=== PATIENT | male | born 1965 | race Caucasian/White ===

== ENCOUNTER 2018-08-30 08:47 | Emergency (ER) | payer OTHER ==
--- NOTE | 2018-08-30 09:07 | EDPHY ---
H & P Stated Complaint: n/v/d C FEVER X 4d, TAKES IBUPROFEN Time Seen by Provider: 08/30/18 09:06 HPI/ROS: CHIEF COMPLAINT: Myalgias, fever, vomiting HISTORY OF PRESENT ILLNESS: The patient presents the ED with a 4-5 day history of myalgias, fever and vomiting. The patient denies a significant cough. He does complain of a mild frontal headache. The patient denies any neck stiffness , focal numbness or weakness. He denies significant abdominal pain. The patient does have a past medical history significant for hepatitis-C. The patient denies any dysuria, flank pain or rash. He has no additional acute complaints. REVIEW OF SYSTEMS: A comprehensive 10 point review of systems is otherwise negative aside from elements mentioned in the history of present illness. Source: Patient Exam Limitations: No limitations - Personal History Current Tetanus/Diphtheria Vaccine: Unsure - Medical/Surgical History Hx Asthma: No Hx Chronic Respiratory Disease: No Hx Diabetes: No Hx Cardiac Disease: No Hx Renal Disease: No Hx Cirrhosis: No Hx Alcoholism: No Hx HIV/AIDS: No Hx Splenectomy or Spleen Trauma: No Other PMH: Hep C treated - Social History Smoking Status: Never smoked - Physical Exam Exam: General Appearance: Alert, mild discomfort Eyes: Pupils equal and round no pallor or injection ENT, Mouth: Mucous membranes moist Respiratory: There are no retractions, lungs are clear to auscultation Cardiovascular: Tachycardic Gastrointestinal: Abdomen is soft and nontender, no masses, bowel sounds normal Neurological: 5/5 strength noted all 4 extremities, normal cranial nerves Skin: Warm and dry, no rashes Musculoskeletal: Neck is supple nontender, specifically no meningeal symptoms Extremities: symmetrical, full range of motion Psychiatric: Patient is oriented X 3, there is no agitation Constitutional: Initial Vital Signs Temperature (C) 37.8 C 08/30/18 09:00 Heart Rate 122 H 08/30/18 09:00 Respiratory Rate 18 08/30/18 09:00 Blood Pressure 103/71 08/30/18 09:00 O2 Sat (%) 92 08/30/18 09:00 Allergies/Adverse Reactions: No Known Allergies Allergy (Unverified 08/30/18 09:00) Home Medications: Medication Instructions Recorded Hydrocodone/APAP 5/325 [[place] 1 - 2 each PO Q6 PRN #20 tab 08/30/18 5/325] Ondansetron Odt [Zofran Odt] 4 mg PO Q4PRN PRN #20 tab 08/30/18 Medical Decision Making ED Course/Re-evaluation: The patient presents to the ED with a constellation of signs and symptoms consistent with acute influenza. The patient has no clinical evidence of meningitis or pneumonia. He is mildly tachycardic from dehydration. The patient had an IV established. He received 2 L of normal saline, 4 mg of IV Zofran and and 15 mg of Toradol. Patient is not a candidate for antiviral therapy given the duration of his symptoms. Re-evaluated the patient at 10:15 a.m., he is feeling better after rehydration. The patient will be discharged home at this point time. He is provided a prescription for Zofran and [place]. He is discharged home with customary aftercare instructions and return precautions. Differential Diagnosis: Differential diagnosis considered includes influenza, dehydration, metabolic abnormality - Data Points Laboratory Results: Laboratory Results 08/30/18 09:20 08/30/18 09:20 08/30/18 08/30/18 09:20 09:20 WBC 9.40 10^3/uL 10^3/uL (3.80-9.50) RBC 5.14 10^6/uL 10^6/uL (4.40-6.38) Hgb 16.6 g/dL g/dL (13.7-17.5) Hct 45.8 % % (40.0-51.0) MCV 89.1 fL fL (81.5-99.8) MCH 32.3 pg pg (27.9-34.1) MCHC 36.2 g/dL g/dL (32.4-36.7) RDW 11.6 % % (11.5-15.2) Plt Count 209 10^3/uL 10^3/uL (150-400) MPV 10.8 fL fL (8.7-11.7) Neut % (Auto) 71.4 % % (39.3-74.2) Lymph % (Auto) 14.3 % L % (15.0-45.0) [place] % (Auto) 13.8 % H % (4.5-13.0) Eos % (Auto) 0.0 % L % (0.6-7.6) Baso % (Auto) 0.2 % L % (0.3-1.7) Nucleat RBC Rel Count 0.0 % % (0.0-0.2) Absolute Neuts (auto) 6.71 10^3/uL H 10^3/uL (1.70-6.50) Absolute Lymphs (auto) 1.34 10^3/uL 10^3/uL (1.00-3.00) Absolute Monos (auto) 1.30 10^3/uL H 10^3/uL (0.30-0.80) Absolute Eos (auto) 0.00 10^3/uL L 10^3/uL (0.03-0.40) Absolute Basos (auto) 0.02 10^3/uL 10^3/uL (0.02-0.10) Absolute Nucleated RBC 0.00 10^3/uL 10^3/uL (0-0.01) Immature Gran % 0.3 % % (0.0-1.1) Immature Gran # 0.03 10^3/uL 10^3/uL (0.00-0.10) Sodium 133 mEq/L L mEq/L (135-145) Potassium 4.3 mEq/L mEq/L (3.5-5.2) Chloride 100 mEq/L mEq/L (97-110) Carbon Dioxide 24 mEq/l mEq/l (22-31) Anion Gap 9 mEq/L mEq/L (6-14) BUN 18 mg/dL mg/dL (7-23) Creatinine 1.1 mg/dL mg/dL (0.7-1.3) Estimated GFR > 60 Glucose 112 mg/dL H mg/dL (70-100) Calcium 8.6 mg/dL mg/dL (8.5-10.4) Medications Given: Discontinued Medications Sodium Chloride (Ns) 1,000 mls @ 0 mls/hr IV ONCE ONE; Wide Open PRN Reason: Protocol Stop: 08/30/18 09:13 Last Admin: 08/30/18 09:27 Dose: 1,000 mls Sodium Chloride (Ns) 1,000 mls @ 0 mls/hr IV ONCE ONE; Wide Open PRN Reason: Protocol Stop: 08/30/18 09:13 Last Admin: 08/30/18 09:28 Dose: 1,000 mls Ketorolac Tromethamine (Toradol) 15 mg IVP EDNOW ONE Stop: 08/30/18 09:14 Last Admin: 08/30/18 09:28 Dose: 15 mg Ondansetron HCl (Zofran) 4 mg IVP EDNOW ONE Stop: 08/30/18 09:14 Last Admin: 08/30/18 09:28 Dose: 4 mg Departure - Departure Disposition: Home, Routine, Self-Care Clinical Impression: Influenza Condition: Good Instructions: Influenza (ED) Additional Instructions: 1. Take Ibuprofen or Motrin 600 mg by mouth three times a day. 2. [place] as needed for severe pain 3. Zofran as needed for nausea 4. Return to the emergency department for markedly worsening symptoms, difficulty breathing, severe headache, neck stiffness or other concerns. Referrals: Corky Rea MD [Primary Care Provider] - As per Instructions Prescriptions: Hydrocodone/APAP 5/325 [[place] 5/325] 1 - 2 each PO Q6 PRN #20 tab PRN Reason: for pain Ondansetron Odt [Zofran Odt] 4 mg PO Q4PRN PRN #20 tab PRN Reason: For Nausea
[2018-08-30] MEDS ORDERED: NS 1,000 ML IV ONE ×2 (09:12)
[2018-08-30] MEDS ORDERED: ONDANSETRON 4 MG/2 ML VIAL IVP ONE (09:13)
[2018-08-30] MEDS ORDERED: KETOROLAC 15 MG/1 ML SDV IVP ONE (09:13)
[2018-08-30 09:31] LABS: PLATELET COUNT 209 10^3/uL (150-400)
[2018-08-30 10:21] VITALS: BP 133/78
== END 2018-08-30 10:40 | disposition home or self-care (01) ==
DX: J11.1 Influenza due to unidentified influenza virus with other respiratory manifestations (principal); E86.0 Dehydration; Z86.19 Personal history of other infectious and parasitic diseases
CPT/HCPCS: 96374; J1885; J2405

== ENCOUNTER 2018-09-08 16:05 | Observation (INO) | payer OTHER ==
[2018-09-08] MEDS ORDERED: NS 1,000 ML IV ONE ×2 (16:30)
[2018-09-08] MEDS ORDERED: KETOROLAC 30 MG/1 ML SDV IVP ONE (16:34)
[2018-09-08] MEDS ORDERED: DEXAMETHASONE 10 MG/ML VIAL IVP ONE (16:34)
--- NOTE | 2018-09-08 16:39 | EDPHY ---
H & P Stated Complaint: DX FLU CONTINUED RESP SYMPTOMS/NAUSEA/BODY ACHES Source: Patient, Old records Exam Limitations: No limitations - Personal History Current Tetanus Diphtheria and Acellular Pertussis (TDAP): Unsure - Medical/Surgical History Hx Asthma: No Hx Chronic Respiratory Disease: No Hx Diabetes: No Hx Cardiac Disease: No Hx Renal Disease: No Hx Cirrhosis: No Hx Alcoholism: No Hx HIV/AIDS: No Hx Splenectomy or Spleen Trauma: No Other PMH: Hep C treated - Social History Smoking Status: Never smoked Time Seen by Provider: 09/08/18 16:30 HPI/ROS: HPI: This is a 53-year-old male who presents with Chief Complaint: DX FLU CONTINUED RESP SYMPTOMS/NAUSEA/BODY ACHES Location: Body Quality: Nausea, aches, respiratory symptoms Duration: Greater than 10 days Signs and Symptoms: no fever, + nausea, no vomiting, no diarrhea, no urinary symptoms, no chest pain, no shortness of breath, no wheezing, no cough, no sore throat, no neck stiffness, no joint pain, no swollen glands, no ear pain, no rash Timing: Daily not improving Severity: Moderate Context: Patient presents for at the urging of his primary care provider to go to the emergency room for further evaluation as "he is not getting better from the flu" that was diagnosed on 08/30/2018 in the emergency room. Symptoms have been present for 4-5 days and he was not a candidate for Tamiflu. No history of lung disease. Patient reports that he no longer has cough or fever but has continued body aches, nausea, GI cramping. Patient reports that he has a poor appetite. Modifying Factors: [id number] cold and cough medicine cells long was codeine cough syrup Comment: ROS: A comprehensive 10 system review of systems is otherwise negative aside from elements mentioned in the history of present illness. MEDICAL/SURGICAL/SOCIAL HISTORY: Medical history: Treated hepatitis-C. Does not take any regular medications. Surgical history: Denies Social history: Never smoked. Family history noncontributory. CONSTITUTIONAL: Ill but nontoxic-appearing middle-aged white male, awake and alert, no obvious distress HEENT: Atraumatic and normocephalic, PERRL, EOMI. Nares patent; no rhinorrhea; no nasal mucosal edema. Tympanic membranes clear. Oropharynx clear, no exudate and moist pink mucosa. Airway patent. No lymphadenopathy. No meningismus. Cardiovascular: Normal S1/S2, regular rate, regular rhythm, without murmur rub or gallop. PULMONARY/CHEST: Symmetrical and nontender. Clear to auscultation bilaterally. Good air movement. No accessory muscle usage. ABDOMEN: Soft, nondistended, generalized mild abdominal tenderness, no rebound , no guarding, no peritoneal signs, no masses or organomegaly. No CVAT. EXTREMITIES: 2/2 pulses, strength 5/5, no deformities, no clubbing, no cyanosis or edema. NEUROLOGICAL: no focal neuro deficits. GCS 15. SKIN: Warm and dry, no erythema. no rash. Good capillary refill. (Dee Will) Constitutional: Initial Vital Signs Temperature (C) 36.8 C 09/08/18 16:13 Heart Rate 96 09/08/18 16:13 Respiratory Rate 17 09/08/18 16:13 Blood Pressure 113/89 H 09/08/18 16:13 O2 Sat (%) 98 09/08/18 16:13 O2 Delivery Mode Room Air Allergies/Adverse Reactions: floxacillin Allergy (Verified 09/08/18 16:13) Sulfa (Sulfonamide Antibiotics) Allergy (Verified 09/08/18 16:13) Home Medications: Medication Instructions Recorded NK [No Known Home Meds] 09/08/18 Medical Decision Making - Diagnostics Imaging Results: Imaging Impressions Chest X-Ray 09/08/18 16:34 Impression: 1. Hazy retrocardiac opacity associated with bronchial thickening, probably representing viral pneumonitis/bronchitis. 2. Nodular density in the right medial lung base favored to represent underlying bronchovascular markings. Would consider 6 month follow-up radiograph for confirmation. ED Course/Re-evaluation: Vital signs reviewed and stable upon arrival. No systemic signs. IV access and laboratory studies ordered including blood cultures and lactic acid along with chest x-ray Patient given 2 L normal saline, IV Decadron 10 mg, IV Toradol 30 mg Will evaluate for dehydration, sepsis, pneumonia 170: Chest x-ray radiology read shows Hazy retrocardiac opacity associated with bronchial thickening, probably representing viral pneumonitis/bronchitis. IV Rocephin and Zithromax ordered 174: Labs reviewed. sodium 129, creatinine 1.1, AST 86, ALT 94. No leukocytosis. No Lactic acidosis 1746: ED decision to consult for admission for influenza pneumonia, hyponatremia. Spoke with hospitalist, Dr. Severino, kindly agrees to admit patient and provide further care. This patient was seen under the supervision of my secondary supervising physician. I evaluated care for this patient independently. Discussed this patient with Dr. Trivedi who did not see the patient. (Dee Will) I did not see this patient while he was in the emergency department. However his care was discussed with the PA while the patient was in the department. I agree with treatment plan and management (Gerry Trivedi) Differential Diagnosis: Adult fever including but not limited to viral syndromes including influenza, urinary tract infection, pneumonia and sepsis. (Dee Will) - Data Points Laboratory Results: Laboratory Results 09/08/18 17:00 09/08/18 17:00 09/08/18 09/08/18 09/08/18 17:00 17:00 17:00 WBC 7.94 10^3/uL 10^3/uL (3.80-9.50) RBC 5.34 10^6/uL 10^6/uL (4.40-6.38) Hgb 17.1 g/dL g/dL (13.7-17.5) Hct 49.0 % % (40.0-51.0) MCV 91.8 fL fL (81.5-99.8) MCH 32.0 pg pg (27.9-34.1) MCHC 34.9 g/dL g/dL (32.4-36.7) RDW 11.9 % % (11.5-15.2) Plt Count 289 10^3/uL 10^3/uL (150-400) MPV 10.3 fL fL (8.7-11.7) Neut % (Auto) 69.6 % % (39.3-74.2) Lymph % (Auto) 13.0 % L % (15.0-45.0) [place] % (Auto) 16.6 % H % (4.5-13.0) Eos % (Auto) 0.0 % L % (0.6-7.6) Baso % (Auto) 0.3 % % (0.3-1.7) Nucleat RBC Rel Count 0.0 % % (0.0-0.2) Absolute Neuts (auto) 5.53 10^3/uL 10^3/uL (1.70-6.50) Absolute Lymphs (auto) 1.03 10^3/uL 10^3/uL (1.00-3.00) Absolute Monos (auto) 1.32 10^3/uL H 10^3/uL (0.30-0.80) Absolute Eos (auto) 0.00 10^3/uL L 10^3/uL (0.03-0.40) Absolute Basos (auto) 0.02 10^3/uL 10^3/uL (0.02-0.10) Absolute Nucleated RBC 0.00 10^3/uL 10^3/uL (0-0.01) Immature Gran % 0.5 % % (0.0-1.1) Immature Gran # 0.04 10^3/uL 10^3/uL (0.00-0.10) VBG Lactic Acid 1.6 mmol/L mmol/L (0.7-2.1) Sodium 129 mEq/L L mEq/L (135-145) Potassium 4.3 mEq/L mEq/L (3.5-5.2) Chloride 100 mEq/L mEq/L (97-110) Carbon Dioxide 22 mEq/l mEq/l (22-31) Anion Gap 7 mEq/L mEq/L (6-14) BUN 18 mg/dL mg/dL (7-23) Creatinine 1.1 mg/dL mg/dL (0.7-1.3) Estimated GFR > 60 Glucose 102 mg/dL H mg/dL (70-100) Calcium 8.8 mg/dL mg/dL (8.5-10.4) Total Bilirubin 1.1 mg/dL mg/dL (0.1-1.4) Conjugated Bilirubin 0.3 mg/dL mg/dL (0.0-0.5) Unconjugated Bilirubin 0.8 mg/dL mg/dL (0.0-1.1) AST 86 IU/L H IU/L (17-59) ALT 94 IU/L H IU/L (21-72) Alkaline Phosphatase 77 IU/L IU/L (38-126) Total Protein 6.7 g/dL g/dL (6.3-8.2) Albumin 3.6 g/dL g/dL (3.5-5.0) Medications Given: Discontinued Medications Acetaminophen (Tylenol) 1,000 mg PO ONCE ONE Stop: 09/08/18 18:11 Last Admin: 09/08/18 18:16 Dose: 1,000 mg Dexamethasone (Decadron Injection) 10 mg IVP EDNOW ONE Stop: 09/08/18 16:35 Last Admin: 09/08/18 18:00 Dose: 10 mg Sodium Chloride (Ns) 1,000 mls @ 0 mls/hr IV ONCE ONE; Wide Open PRN Reason: Protocol Stop: 09/08/18 16:31 Last Admin: 09/08/18 16:45 Dose: 1,000 mls Sodium Chloride (Ns) 1,000 mls @ 0 mls/hr IV ONCE ONE; Wide Open PRN Reason: Protocol Stop: 09/08/18 16:31 Last Admin: 09/08/18 17:00 Dose: 1,000 mls Azithromycin 500 mg/ Dextrose 255 mls @ 255 mls/hr IV EDNOW ONE PRN Reason: Protocol Stop: 09/08/18 18:01 Last Admin: 09/08/18 18:30 Dose: 255 mls Ceftriaxone Sodium/Dextrose (Rocephin 1 Gm (Premix)) 50 mls @ 100 mls/hr IV EDNOW ONE PRN Reason: Protocol Stop: 09/08/18 17:31 Last Admin: 09/08/18 18:01 Dose: 50 mls Ketorolac Tromethamine (Toradol) 30 mg IVP EDNOW ONE Stop: 09/08/18 16:35 Last Admin: 09/08/18 17:59 Dose: 30 mg Departure - Departure Disposition: [facility] Clinical Impression: Influenza with pneumonia, Hyponatremia Condition: Fair
[2018-09-08] MEDS ORDERED: AZITHROMYCIN IV 500 MG in D5W 250 ML IV ONE (17:02)
[2018-09-08 17:31] LABS: PLATELET COUNT 289 10^3/uL (150-400)
[2018-09-08] MEDS ORDERED: ACETAMINOPHEN 500 MG TAB PO ONE (18:10)
[2018-09-08] MEDS ORDERED: ACETAMINOPHEN 500 MG TAB ONE (18:10)
[2018-09-08] MEDS ORDERED: ACETAMINOPHEN 325 MG TAB PO PRN (18:52)
[2018-09-08] MEDS ORDERED: oxyCODONE IR 5 MG TAB PO PRN (18:52)
[2018-09-08] MEDS ORDERED: ALBUTEROL 3 ML DEYVIAL IH PRN (18:52)
[2018-09-08] MEDS ORDERED: ONDANSETRON DISINTEGRATING 4 MG TAB PO PRN (18:52)
[2018-09-08] MEDS ORDERED: ONDANSETRON 4 MG/2 ML VIAL IVP PRN (18:52)
[2018-09-08] MEDS ORDERED: PROMETHAZINE HCL 25 MG/ML INJ IVP PRN (18:52)
[2018-09-08] MEDS ORDERED: HYDROCODONE/APAP 5/325 TAB PO PRN (18:52)
[2018-09-08] MEDS: IPRATROPIUM/ALBUTEROL 3 ML DEYVIAL IH SCH (21:27)
--- NOTE | 2018-09-08 22:33 | PDGENHP ---
History and Physical - Chief Complaint fever/chills/body aches - History of Present Illness 53 yo M with PMH of treated hepatitis C but otherwise healthy presenting with concerns of continued fever, chills, body aches and profound weakness following a presumptive diagnosis of influenza 08/30. He was seen in the ER here at that time, and diagnosed with flu presumptively based on his sxs, given that he had already had sxs for several days he was not a candidate for tamiflu and was sent home to continue supportive care. Unfortunately his sxs continued and seemed to worsen to some extent. He has had some cough but not productive, no other focal findings including no n/v/diarrhea. He was seen by his PCP today who encouraged him to come to the ER for further evaluation. He states he has never felt this poorly previously. He did have recurrent fever today to 102. History Information - Allergies/Home Medication List Allergies/Adverse Reactions: floxacillin Allergy (Verified 09/08/18 16:13) Sulfa (Sulfonamide Antibiotics) Allergy (Verified 09/08/18 16:13) Home Medications: NK [No Known Home Meds] 09/08/18 [Last Taken Unknown] I have personally reviewed and updated: family history, medical history, social history, surgical history - Past Medical History Additional medical history: hepatitis c - Surgical History Reports: no pertinent surgical hx - Family History Positive for: non-pertinent - Social History Smoking Status: Never smoked Alcohol Use: Occasionally Drug Use: None, Cocaine (lives alone, self employed) Review of Systems Review of Systems: ROS: 10pt was reviewed & negative except for what was stated in HPI & below Physical Exam Physical Exam: Temp Pulse Resp BP Pulse Ox 36.4 C 58 L 14 120/76 93 09/08/18 20:06 09/08/18 21:27 09/08/18 21:27 09/08/18 20:06 09/08/18 21:27 Constitutional: appears nourished, uncomfortable Eyes: PERRL, scleral injection Ears, Nose, Mouth, Throat: moist mucous membranes, hearing normal Cardiovascular: regular rate and rhythym, no murmur, rub, or gallop Respiratory: no respiratory distress, reduced air movement Gastrointestinal: normoactive bowel sounds, soft, non-tender abdomen Genitourinary: no bladder tenderness Skin: warm, normal color, other (diaphoretic) Musculoskeletal: no muscle tenderness Neurologic: AAOx3 Psychiatric: interacting appropriately, not anxious, not encephalopathic Lab Data & Imaging Review 09/08/18 17:00 09/08/18 17:00 WBC 7.94 10^3/uL (3.80-9.50) 09/08/18 17:00 RBC 5.34 10^6/uL (4.40-6.38) 09/08/18 17:00 Hgb 17.1 g/dL (13.7-17.5) 09/08/18 17:00 Hct 49.0 % (40.0-51.0) 09/08/18 17:00 MCV 91.8 fL (81.5-99.8) 09/08/18 17:00 MCH 32.0 pg (27.9-34.1) 09/08/18 17:00 MCHC 34.9 g/dL (32.4-36.7) 09/08/18 17:00 RDW 11.9 % (11.5-15.2) 09/08/18 17:00 Plt Count 289 10^3/uL (150-400) 09/08/18 17:00 MPV 10.3 fL (8.7-11.7) 09/08/18 17:00 Neut % (Auto) 69.6 % (39.3-74.2) 09/08/18 17:00 Lymph % (Auto) 13.0 % (15.0-45.0) L 09/08/18 17:00 [place] % (Auto) 16.6 % (4.5-13.0) H 09/08/18 17:00 Eos % (Auto) 0.0 % (0.6-7.6) L 09/08/18 17:00 Baso % (Auto) 0.3 % (0.3-1.7) 09/08/18 17:00 Nucleat RBC Rel Count 0.0 % (0.0-0.2) 09/08/18 17:00 Absolute Neuts (auto) 5.53 10^3/uL (1.70-6.50) 09/08/18 17:00 Absolute Lymphs (auto) 1.03 10^3/uL (1.00-3.00) 09/08/18 17:00 Absolute Monos (auto) 1.32 10^3/uL (0.30-0.80) H 09/08/18 17:00 Absolute Eos (auto) 0.00 10^3/uL (0.03-0.40) L 09/08/18 17:00 Absolute Basos (auto) 0.02 10^3/uL (0.02-0.10) 09/08/18 17:00 Absolute Nucleated RBC 0.00 10^3/uL (0-0.01) 09/08/18 17:00 Immature Gran % 0.5 % (0.0-1.1) 09/08/18 17:00 Immature Gran # 0.04 10^3/uL (0.00-0.10) 09/08/18 17:00 VBG Lactic Acid 1.6 mmol/L (0.7-2.1) 09/08/18 17:00 Sodium 129 mEq/L (135-145) L 09/08/18 17:00 Potassium 4.3 mEq/L (3.5-5.2) 09/08/18 17:00 Chloride 100 mEq/L (97-110) 09/08/18 17:00 Carbon Dioxide 22 mEq/l (22-31) 09/08/18 17:00 Anion Gap 7 mEq/L (6-14) 09/08/18 17:00 BUN 18 mg/dL (7-23) 09/08/18 17:00 Creatinine 1.1 mg/dL (0.7-1.3) 09/08/18 17:00 Estimated GFR > 60 09/08/18 17:00 Glucose 102 mg/dL (70-100) H 09/08/18 17:00 Calcium 8.8 mg/dL (8.5-10.4) 09/08/18 17:00 Total Bilirubin 1.1 mg/dL (0.1-1.4) 09/08/18 17:00 Conjugated Bilirubin 0.3 mg/dL (0.0-0.5) 09/08/18 17:00 Unconjugated Bilirubin 0.8 mg/dL (0.0-1.1) 09/08/18 17:00 AST 86 IU/L (17-59) H 09/08/18 17:00 ALT 94 IU/L (21-72) H 09/08/18 17:00 Alkaline Phosphatase 77 IU/L (38-126) 09/08/18 17:00 Total Protein 6.7 g/dL (6.3-8.2) 09/08/18 17:00 Albumin 3.6 g/dL (3.5-5.0) 09/08/18 17:00 Visualized and Interpreted Chest x-ray results: Yes Chest X-Ray results: infiltrate, other (retrocardiac opacity, bronchitis, nodular density right medial lung) Assessment & Plan Assessment: Hyponatremia (Acute) Influenza with pneumonia (Acute) 53 yo M with PMH of treated hepatitis C presenting with persistent flu like sxs and suspected pna # pna: with retrocardiac opacity and associated bronchitis c/w bronchopneumonia or viral pneumonia/pneumonitis. Has been started on ctx/azithro and will continue. Blood and sputum cultures, legionella ur ag, strep pna ag and respiratory panel pcr all ordered and pending. Will repeat cxr in am to see if anything clearly developing following fluids overnight # flu like sxs: have been present for nearly 2 weeks at this time, was never definitively diagnosed with flu, will get resp panel today as above # nodule right medial lung base density: per radiology more c/w bronchovascular markings rather than nodular mass but recommending 6 month f/u imaging, if patient not improving as expected for treatment of above would have low threshold for chest CT for further evaluation # hyponatremia: in setting of pna as above, hypovolemia likely but raises concern for legionella as well, testing as above, IVF overnight and trend # transaminitis: mild and likely related to viral syndrome, will trend, does have hx of treated hep c with normal lfts in recent past # observation status Patient new to my care. Old records reviewed and summarized as above. Care plan reviewed with ER doctor as above.
[2018-09-08] MEDS: NS 1,000 ML IV SCH (23:35)
[2018-09-09 05:35] LABS: PLATELET COUNT 279 10^3/uL (150-400)
[2018-09-09] MEDS: IPRATROPIUM/ALBUTEROL 3 ML DEYVIAL IH SCH ×4 (05:52→21:10)
[2018-09-09] MEDS: NS 1,000 ML IV SCH (07:55)
[2018-09-09] MEDS: AZITHROMYCIN IV 500 MG in NS 250 ML IV SCH (11:06)
--- NOTE | 2018-09-09 13:11 | HOSPPROG ---
Hospitalist Progress Note Assessment/Plan: Luke Veronica is a 53 year old male with pmh of treated hep c admitted with CAP. 53 yo M with PMH of treated hepatitis C presenting with persistent flu like sxs and suspected pna # pna: repeat CXR today reviewed by myself showing mild peribronchial thickening consistent with infection. No leukocytosis but does have elevated bands. Has been started on ctx/azithro and will continue. Blood and sputum cultures, legionella ur ag, strep pna ag and respiratory panel pcr all ordered and pending. Still very weak and struggles with breathing when ambulating. # hyponatremia: responded to fluid resuscitation and was likely hypovolemic hyponatremia. monitor for now. # transaminitis:trending down, likely related to acute illness. I reviewed the patients chart, who is new to me today and he did have normal LFTs in the past. # PPX- SCDs, Lovenox Fluids- PO Lytes- WNL Nutrition- regular diet Cor- Full Dispo- change to inpatient as he is still hypoxic with ambulation and will require IV abx. Subjective: still very weak. Short of breath with any ambulation Objective: Vital Signs Temp Pulse Resp BP Pulse Ox 36.6 C 71 14 103/63 97 09/09/18 07:48 09/09/18 07:48 09/09/18 05:52 09/09/18 07:48 09/09/18 07:48 Microbiology 09/08/18 23:40 Respiratory Panel (PCR) - Final Nasal, Sinus - Swab No Organism Detected By Pcr Laboratory Results 09/09/18 05:05 09/09/18 05:05 09/08/18 09/09/18 09/10/18 05:59 05:59 05:59 Intake Total 2000 Output Total 500 175 Balance 1500 -175 - Physical Exam Constitutional: no apparent distress, appears nourished, not in pain Eyes: PERRL, anicteric sclera, EOMI Ears, Nose, Mouth, Throat: moist mucous membranes, hearing normal, ears appear normal, no oral mucosal ulcers Cardiovascular: regular rate and rhythym, no murmur, rub, or gallop Respiratory: no respiratory distress, no rales or rhonchi, clear to auscultation Gastrointestinal: normoactive bowel sounds, soft, non-tender abdomen, no palpable masses Genitourinary: no bladder fullness, no bladder tenderness, no renal bruits Skin: no rashes or abrasions, no fluctuance, no induration Musculoskeletal: full muscle strength, no muscle tenderness, normal joint ROM Neurologic: AAOx3, sensation intact bilaterally Psychiatric: interacting appropriately, not anxious, not encephalopathic, thought process linear Lymph, Heme, Immunologic: no cervical LAD, no supraclavicular LAD ICD10 Worksheet Patient Problems: Problems Problem Status Onset Hyponatremia Acute Influenza with pneumonia Acute
--- NOTE | 2018-09-09 16:38 | ASMTCMCOM ---
CM Note CM Note Notes: Pt admitted for possible flu/pneumonia. Lives alone in [place], anticipate he will be independent when ready to dc. CM available for any changes. DC Plan: Independent Date Signed: 09/09/2018 04:38 PM Electronically Signed By:Viridiana Powell RN
[2018-09-09] MEDS ORDERED: MELATONIN 3 MG TAB PO PRN (22:20)
[2018-09-10] MEDS: IPRATROPIUM/ALBUTEROL 3 ML DEYVIAL IH SCH ×2 (05:31→10:22)
[2018-09-10 07:59] VITALS: BP 115/76
[2018-09-10] MEDS: AZITHROMYCIN IV 500 MG in NS 250 ML IV SCH (09:21)
--- NOTE | 2018-09-11 10:39 | PDDCSUM ---
Discharge Summary Discharge Summary: Patient is a 53-year-old male with no significant past medical history who was admitted with what was thought to be community-acquired pneumonia. On admission patient had no leukocytosis, and flu swab was negative. However he was hypoxic and chest x-ray was concerning for a new infiltrate. He was started on antibiotics consisting of Rocephin and azithromycin. Over the course of his hospitalization his hypoxia resolved and he felt significantly better. He was discharged to complete a course of 7 days of antibiotics total. He had an allergy listed to floxacillin. He could not remember his allergy but he did say he has not taken penicillins and a long-time. For that reason he was discharged to complete a course of levofloxacin. Discharge diagnosis Community-acquired pneumonia Acute hypoxemia Disposition Home in good condition discharge medications Levofloxacin 750 mg Follow-up Primary care physician
== END 2018-09-10 12:28 | disposition home or self-care (01) ==
LOC: F3E 19:59
PROVIDERS: ADMIT Internal Medicine; ATTEND Internal Medicine
DX: J11.1 Influenza due to unidentified influenza virus with other respiratory manifestations (principal); J18.9 Pneumonia, unspecified organism; R09.02 Hypoxemia; R91.1 Solitary pulmonary nodule; E87.1 Hypo-osmolality and hyponatremia; E86.0 Dehydration
CPT/HCPCS: 71046; G0378; 87449-90; J0456; J0696; J1100; J1885

== ENCOUNTER → 2018-10-11 | Outpatient (CLI) | payer OTHER ==
[~2018-10-11] MED LIST: IOHEXOL 300 mgI/ML (OMNIPAQUE) 150 ML BTL IV ONE
== END ==
LOC: FIMAGING 07:48
PROVIDERS: ATTEND Internal Medicine
DX: R10.9 Unspecified abdominal pain (principal); R19.5 Other fecal abnormalities
CPT/HCPCS: Q9967